=== PATIENT | male | born 1965 | race African-American/Black ===

== ENCOUNTER 2023-07-04 06:44 | Inpatient (IN) | payer SELFPAY ==
[~2023-07-04] VITALS: Ht 172.7 cm; Wt 61.2 kg
[2023-07-04 07:35] VITALS: O2SAT 100
[2023-07-04 09:52] LABS: HEMATOCRIT. 42.9 % (42.0-52.0); HEMOGLOBIN. 14.6 g/dL (14.0-18.0); MEAN CORPUSCULAR HEMOGLOBIN 31.8 pg (28.0-32.0); MEAN CORPUSCULAR HGB CONC 34.1 g/dL (31.0-37.0); MEAN CORPUSCULAR VOLUME 93.3 fL (80.0-94.0); MEAN PLATELET VOLUME 9.7 fl (7.4-10.4); PLATELET 248 x1000/uL (130-400); RED BLOOD CELL COUNT 4.59 mill/uL (4.7-6.1); RED CELL DISTRIBUTION WIDTH 14.9 % (11.6-14.6); WHITE BLOOD COUNT 5.9 x1000/uL (4.5-11.0)
[2023-07-04 09:56] LABS: DIFFERENTIAL COMMENT 1
[2023-07-04 10:07] LABS: ALANINE AMINOTRANSFERASE 13 IU/L (10-49); ALBUMIN 4.8 g/dL (3.2-4.8); ASPARTATE AMINOTRANSFERASE 19 IU/L (<34); BILIRUBIN TOTAL 0.4 mg/dL (0.1-1.0); CALCIUM 10.1 mg/dL (8.7-10.4); CARBON DIOXIDE 25 mEq/L (21-32); CHLORIDE 90 mEq/L (98-107); CREATININE 3.7 mg/dL (0.6-1.3); GLUCOSE 92 mg/dL (70-105); POTASSIUM 3.9 mEq/L (3.5-5.1); PROTEIN TOTAL 8.8 g/dL (6.0-8.3); SODIUM 127 mEq/L (136-145); UREA NITROGEN BLOOD 71 mg/dL (9-23)
[2023-07-04 11:08] LABS: PLATELET ESTIMATE NORMAL
[2023-07-04] MEDS ORDERED: SODIUM CHLORIDE 0.9% 1,000 ML IV ONE ×2 (12:30→15:15)
[2023-07-04 13:28] LABS: TROPONIN I HIGH SENSITIVITY 11 ng/L (3.0-53)
[2023-07-04 18:41] LABS: TROPONIN I HIGH SENSITIVITY 13 ng/L (3.0-53)
[2023-07-04 21:00] VITALS: BP 162/78; PULSE 86; RESP 18; TEMP 97.7
[2023-07-04] MEDS ORDERED: CLONIDINE 0.1MG TABLET PO PRN (21:45)
[2023-07-04] MEDS ORDERED: MAGNESIUM/ALUMINUM HYDROXIDE/SIMETHICONE 30ML UDC PO PRN (21:45)
[2023-07-04] MEDS ORDERED: GUAIFENESIN 200MG/10ML SUGAR FREE UDC PO PRN (21:45)
[2023-07-04] MEDS ORDERED: HYDROCODONE/ACETAMINOPHEN 5/325MG TABLET PO PRN (21:45)
[2023-07-04] MEDS: PANTOPRAZOLE SODIUM 40 MG/VIAL IV SCH (21:45)
[2023-07-04] MEDS ORDERED: ONDANSETRON HCL 4MG/2ML INJ IV PRN (21:45)
[2023-07-04] MEDS ORDERED: IPRATROPIUM/ALBUTEROL 0.5-3(2.5)MG/3ML NEB HHN PRN (21:45)
[2023-07-04] MEDS ORDERED: NALOXONE HCL 0.4MG/ML VIAL IV PRN (21:45)
[2023-07-04] MEDS ORDERED: ACETAMINOPHEN 325MG TABLET PO PRN ×2 (21:45)
[2023-07-04] MEDS ORDERED: NA PHOS,M-B/NA PHOS,DI-BA ENEMA 118ML PR PRN (21:45)
[2023-07-04] MEDS ORDERED: DOCUSATE SODIUM 100MG CAPSULE PO PRN (21:45)
[2023-07-04] MEDS ORDERED: DEXT 5%/0.9% NACL 1,000 ML IV SCH (21:45)
[2023-07-04] MEDS ORDERED: NITROGLYCERIN 0.4MG TABLET SL SL PRN (23:15)
[2023-07-05] VITALS: BP 103/73; PULSE 75; RESP 18; TEMP 96.7
[2023-07-05 02:03] LABS: AMYLASE 525 IU/L (30-118); CREATINE KINASE 119 IU/L (46-171); TROPONIN I HIGH SENSITIVITY 14 ng/L (3.0-53)
[2023-07-05 04:00] VITALS: BP_SYST 154; BP_SYST 96; BP_DIAS 61; BP_DIAS 74; PULSE 72; PULSE 75; RESP 17; RESP 18; TEMP 97; TEMP 97.7
[2023-07-05 07:54] LABS: HEMATOCRIT. 34.6 % (42.0-52.0); HEMOGLOBIN. 11.6 g/dL (14.0-18.0); MEAN CORPUSCULAR HEMOGLOBIN 31.8 pg (28.0-32.0); MEAN CORPUSCULAR HGB CONC 33.4 g/dL (31.0-37.0); MEAN CORPUSCULAR VOLUME 95.2 fL (80.0-94.0); MEAN PLATELET VOLUME 10.5 fl (7.4-10.4); PLATELET 200 x1000/uL (130-400); RED BLOOD CELL COUNT 3.63 mill/uL (4.7-6.1); RED CELL DISTRIBUTION WIDTH 14.6 % (11.6-14.6); WHITE BLOOD COUNT 5.5 x1000/uL (4.5-11.0)
[2023-07-05 08:00] VITALS: BP 95/53; PULSE 71; RESP 20; TEMP 98
[2023-07-05 08:28] LABS: ALANINE AMINOTRANSFERASE 11 IU/L (10-49); ALBUMIN 3.7 g/dL (3.2-4.8); ASPARTATE AMINOTRANSFERASE 19 IU/L (<34); BILIRUBIN TOTAL 0.4 mg/dL (0.1-1.0); CALCIUM 8.9 mg/dL (8.7-10.4); CARBON DIOXIDE 24 mEq/L (21-32); CHLORIDE 100 mEq/L (98-107); CHOLESTEROL 69 mg/dL (<200); CREATINE KINASE 111 IU/L (46-171); GLUCOSE 78 mg/dL (70-105); HDL CHOLESTEROL 31 mg/dL (>55); LDL CHOLESTEROL 36 mg/dL (5-100); POTASSIUM 3.3 mEq/L (3.5-5.1); PROTEIN TOTAL 6.7 g/dL (6.0-8.3); T4 FREE 0.95 ng/dL (0.89-1.76); THYROID STIMULATING HORMONE 1.97 uIU/mL (0.55-4.78); TRIGLYCERIDE 59 mg/dL (0-150); TROPONIN I HIGH SENSITIVITY 13 ng/L (3.0-53); UREA NITROGEN BLOOD 51 mg/dL (9-23)
[2023-07-05 08:37] LABS: DIFFERENTIAL COMMENT 1
[2023-07-05] MEDS: PANTOPRAZOLE SODIUM 40 MG/VIAL IV SCH (08:45)
[2023-07-05 08:54] LABS: CREATININE 1.5 mg/dL (0.6-1.3); SODIUM 135 mEq/L (136-145)
[2023-07-05] MEDS ORDERED: POTASSIUM CHLORIDE 20MEQ TABLET SR PO NR (10:45)
[2023-07-05] MEDS ORDERED: SODIUM CHLORIDE 0.9% 1,000 ML IV SCH (10:45)
[2023-07-05 16:32] LABS: PLATELET ESTIMATE NORMAL
== END 2023-07-05 12:52 | disposition left against medical advice (07) | DRG 203 ==
LOC: ER 06:44 → MICUSO 15:12 → EDBEDREQTM 15:14 → EDBEDREQ 15:14 → 6WST 22:55
PROVIDERS: ADMIT Internal Medicine; ATTEND Internal Medicine
DX: M94.0 Chondrocostal junction syndrome [Tietze] (principal); N17.0 Acute kidney failure with tubular necrosis; R13.10 Dysphagia, unspecified; Z53.29 Procedure and treatment not carried out because of patient's decision for other reasons; F17.290 Nicotine dependence, other tobacco product, uncomplicated; Z79.899 Other long term (current) drug therapy
CPT/HCPCS: 36415; 71250; 74176; 76700; 80053; 80061; 82150; 82550; 83930; 84439; 84443; 84484; 85025; 85379; 93005; 93970; 99285; C9113; J7030